=== PATIENT | male | born 1995 | race Caucasian/White ===

== ENCOUNTER 2018-02-13 14:03 | Emergency (ER) | payer OTHER ==
[~2018-02-13] VITALS: Ht 177.8 cm; Wt 72.0 kg
[2018-02-13] MEDS ORDERED: KETOROLAC 30MG/ML VIAL IV STA (16:40)
[2018-02-13] MEDS ORDERED: ONDANSETRON HCL 4MG/2ML INJ IV STA (16:40)
[2018-02-13] MEDS ORDERED: SODIUM CHLORIDE 0.9% 1,000 ML IV ONE (16:40)
[2018-02-13 17:09] LABS: HEMOGLOBIN. 16.6 g/dL (14.0-18.0); MEAN CORPUSCULAR HEMOGLOBIN 31.2 pg (28.0-32.0); MEAN CORPUSCULAR VOLUME 92.1 fL (80.0-94.0); MEAN PLATELET VOLUME 8.3 fl (7.4-10.4); PLATELET 170 x1000/uL (130-400); RED BLOOD CELL COUNT 5.32 mill/uL (4.7-6.1); RED CELL DISTRIBUTION WIDTH 13.4 % (11.6-14.6)
[2018-02-13 17:22] LABS: CHLORIDE 105 mEq/L (98-107)
[2018-02-13 17:44] LABS: PLATELET ESTIMATE NORMAL
[2018-02-13 18:29] VITALS: BP 117/65
== END 2018-02-13 20:16 | disposition home or self-care (01) ==
LOC: ER 20:16
DX: R11.2 Nausea with vomiting, unspecified (principal)
CPT/HCPCS: 36415; 80053; 85025; 96361; 96374; 99283; J2405; J7030

== ENCOUNTER 2019-10-19 14:04 | Emergency (ER) | payer MEDICAID, OTHER ==
[~2019-10-19] VITALS: Ht 180.3 cm; Wt 64.0 kg
[2019-10-19] MEDS ORDERED: ONDANSETRON 4MG ODT PO ONE (14:45)
[2019-10-19 15:37] LABS: CHLORIDE 107 mEq/L (98-107); HEMATOCRIT. 50.3 % (42.0-52.0); HEMOGLOBIN. 17.2 g/dL (14.0-18.0); MEAN CORPUSCULAR HEMOGLOBIN 31.1 pg (28.0-32.0); MEAN CORPUSCULAR VOLUME 90.6 fL (80.0-94.0); MEAN PLATELET VOLUME 8.4 fl (7.4-10.4); PLATELET 192 x1000/uL (130-400); RED BLOOD CELL COUNT 5.55 mill/uL (4.7-6.1); RED CELL DISTRIBUTION WIDTH 12.8 % (11.6-14.6)
[2019-10-19 16:17] LABS: PLATELET ESTIMATE NORMAL
[2019-10-19 17:02] VITALS: BP 126/87
== END 2019-10-19 17:03 | disposition home or self-care (01) ==
LOC: ER 14:11
DX: R11.0 Nausea (principal); R42 Dizziness and giddiness; R20.2 Paresthesia of skin; R03.0 Elevated blood-pressure reading, without diagnosis of hypertension; F12.90 Cannabis use, unspecified, uncomplicated
CPT/HCPCS: 36415; 80048; 85025; 99283; Q0162

== ENCOUNTER 2019-10-21 11:07 | Emergency (ER) | payer MEDICAID ==
[~2019-10-21] VITALS: Ht 180.3 cm; Wt 66.0 kg
[2019-10-21 12:27] VITALS: BP 133/74
[2019-10-21] MEDS ORDERED: FAMOTIDINE 20MG/2ML VIAL IV STA (12:42)
[2019-10-21] MEDS ORDERED: SODIUM CHLORIDE 0.9% 1,000 ML IV ONE (12:42)
[2019-10-21] MEDS ORDERED: METOCLOPRAMIDE HCL 10MG/2ML VIAL IV STA (12:42)
[2019-10-21] MEDS ORDERED: AZITHROMYCIN 500 MG TABLET PO ONE (13:00)
[2019-10-21] MEDS ORDERED: CEFTRIAXONE SODIUM 250 MG/VIAL IM ONE (13:00)
[2019-10-21 13:05] LABS: BASOPHILS % 0.2 % (0.0-2.0); EOSINOPHILS % 0.1 % (0.0-5.0); HEMATOCRIT. 49.3 % (42.0-52.0); HEMOGLOBIN. 16.7 g/dL (14.0-18.0); LYMPHOCYTES % 9.5 % (20.0-50.0); MEAN CORPUSCULAR HEMOGLOBIN 30.9 pg (28.0-32.0); MEAN CORPUSCULAR VOLUME 91.5 fL (80.0-94.0); MEAN PLATELET VOLUME 8.9 fl (7.4-10.4); MONOCYTES % 4.4 % (2.0-8.0); NEUTROPHILS % 85.8 % (40.0-76.0); PLATELET 192 x1000/uL (130-400); RED BLOOD CELL COUNT 5.39 mill/uL (4.7-6.1); RED CELL DISTRIBUTION WIDTH 12.9 % (11.6-14.6)
[2019-10-21 13:08] LABS: CLARITY URINE CLEAR (CLEAR); COLOR URINE YELLOW (YELLOW); KETONES URINE 3+ (NEGATIVE); LEUKOCYTE ESTERASE URINE NEGATIVE (NEGATIVE); NITRITE URINE NEGATIVE (NEGATIVE); OCCULT BLOOD URINE NEGATIVE (NEGATIVE); PH URINE 8.5 (4.5-8.0); PROTEIN URINE TRACE (NEGATIVE); UROBILINOGEN URINE 0.2 E.U./dL (0.2-1.0)
[2019-10-21 13:15] LABS: CHLORIDE 107 mEq/L (98-107)
[2019-10-21] MEDS ORDERED: POTASSIUM CHLORIDE 20MEQ TABLET SR PO ONE (13:45)
[2019-10-21] MEDS ORDERED: IOHEXOL-300 100 ML BOTTLE ONE (14:06)
[2019-10-21] MEDS ORDERED: VISCOUS LIDOCAINE 2% 15 ML UDC PO STA (14:27)
[2019-10-21] MEDS ORDERED: MAGNESIUM/ALUMINUM HYDROXIDE/SIMETHICONE 30ML UDC PO STA (14:27)
== END 2019-10-21 16:40 | disposition home or self-care (01) ==
LOC: ER 11:07
DX: K29.70 Gastritis, unspecified, without bleeding (principal); E86.0 Dehydration; E87.6 Hypokalemia
CPT/HCPCS: 36415; 74177; 80053; 81003; 83690; 85025; 93005; 96361; 96374; 96375; 99285; J2765; J3490; J7030; Q9967